=== PATIENT | female | born 2000 | race Caucasian/White ===

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

== ENCOUNTER 2021-01-17 22:25 | Emergency (ER) | payer OTHER ==
[~2021-01-17] VITALS: Ht 167.6 cm; Wt 68.0 kg
[2021-01-17] MEDS ORDERED: LOESTRIN FE 1-1 EACH PO (22:37)
[2021-01-17 22:39] LABS: URINE BILIRUBIN NEGATIVE (Negative); URINE BLOOD NEGATIVE (Negative); URINE CLARITY CLEAR; URINE COLOR YELLOW; URINE GLUCOSE-RANDOM* NEGATIVE (Negative); URINE KETONES NEGATIVE (Negative); URINE NITRITE-REFLEX NEGATIVE (Negative); URINE PROTEIN (DIPSTICK) NEGATIVE (Negative); URINE SPECIFIC GRAVITY 1.015 (1.005-1.035)
[2021-01-17 22:40] LABS: URINE LEUKOCYTES-REFLEX 3+ (Negative)
[2021-01-17 22:51] LABS: CASTS None Seen /LPF (None Seen); MUCUS 0-3 Light strn/LPF (None Seen); SQUAMOUS 4-10 Moderate /LPF (0-3); URINE WBC-REFLEX 0-5 Rare /HPF (0-5)
[2021-01-17 22:52] LABS: BACTERIA-REFLEX 1-9 Few /HPF (None Seen); CRYSTALS None Seen /LPF (None Seen); URINE RBC 1-2 Rare /HPF (NONE SEEN)
[2021-01-17] MEDS ORDERED: FLAGYL500 M1 PO (23:54)
[2021-01-17] MEDS ORDERED: DIFLUCAN150 MG PO (23:54)
[2021-01-18 00:13] VITALS: BP 113/71
== END 2021-01-18 00:19 | disposition home or self-care (01) ==
LOC: ER 22:25
PROVIDERS: Emergency Medicine
DX: N76.0 Acute vaginitis (principal); B96.89 Other specified bacterial agents as the cause of diseases classified elsewhere; B37.3 Candidiasis of vulva and vagina; Z88.1 Allergy status to other antibiotic agents

== ENCOUNTER 2021-02-14 14:31 | Emergency (ER) | payer OTHER ==
[~2021-02-14] VITALS: Ht 167.6 cm; Wt 68.0 kg
[~2021-02-14 14:31] MED LIST changes: +DIFLUCAN150 MG PO; +FLAGYL500 M1 PO; +LOESTRIN FE 1-1 EACH PO
[2021-02-14 14:54] LABS: URINE BILIRUBIN NEGATIVE (Negative); URINE BLOOD 3+ (Negative); URINE COLOR YELLOW; URINE GLUCOSE-RANDOM* NEGATIVE (Negative); URINE KETONES NEGATIVE (Negative); URINE NITRITE-REFLEX NEGATIVE (Negative); URINE PROTEIN (DIPSTICK) TRACE (Negative); URINE UROBILINOGEN 0.2 E.U./dl (0.2-1.0)
[2021-02-14 14:55] LABS: URINE CLARITY HAZY; URINE LEUKOCYTES-REFLEX 1+ (Negative)
[2021-02-14 15:14] LABS: CASTS None Seen /LPF (None Seen); MUCUS >6 Heavy strn/LPF (None Seen); SQUAMOUS 4-10 Moderate /LPF (0-3)
[2021-02-14 15:15] LABS: URINE RBC 3-10 Few /HPF (NONE SEEN); URINE WBC-REFLEX >25 Many /HPF (0-5)
[2021-02-14 15:16] LABS: CRYSTALS None Seen /LPF (None Seen)
[2021-02-14 16:56] VITALS: BP 126/67
[2021-02-15] MEDS ORDERED: MACROBID 100 M100 M1 PO (14:30)
[2021-02-15] MEDS ORDERED: PHENAZOPYRIDIN100 M1 PO (14:30)
[2021-02-15] MEDS ORDERED: DIFLUCAN150 MG PO (14:30)
== END 2021-02-14 16:56 | disposition home or self-care (01) ==
LOC: ER 14:31
PROVIDERS: Emergency Medicine
DX: R30.0 Dysuria (principal); R11.0 Nausea; M54.5 Low back pain; Z88.1 Allergy status to other antibiotic agents

== ENCOUNTER 2021-02-15 13:11 | Emergency (ER) | payer OTHER ==
[~2021-02-15] VITALS: Ht 167.6 cm; Wt 68.0 kg
[2021-02-15 13:54] LABS: URINE BILIRUBIN NEGATIVE (Negative); URINE BLOOD 1+ (Negative); URINE CLARITY CLEAR; URINE COLOR YELLOW; URINE GLUCOSE-RANDOM* NEGATIVE (Negative); URINE KETONES NEGATIVE (Negative); URINE LEUKOCYTES-REFLEX NEGATIVE (Negative); URINE NITRITE-REFLEX NEGATIVE (Negative); URINE PROTEIN (DIPSTICK) NEGATIVE (Negative); URINE UROBILINOGEN 0.2 E.U./dl (0.2-1.0)
[2021-02-15] MEDS ORDERED: DIFLUCAN150 MG PO (14:30)
[2021-02-15] MEDS ORDERED: PHENAZOPYRIDIN100 M1 PO (14:30)
[2021-02-15] MEDS ORDERED: MACROBID 100 M100 M1 PO (14:30)
[2021-02-15 14:31] LABS: MUCUS 4-6 Moderate strn/LPF (None Seen); SQUAMOUS 4-10 Moderate /LPF (0-3)
[2021-02-15 14:32] LABS: URINE WBC-REFLEX >25 Many /HPF (0-5)
[2021-02-15 14:33] LABS: BACTERIA-REFLEX >30 Many /HPF (None Seen)
[2021-02-15 15:08] VITALS: BP 103/56
== END 2021-02-15 15:09 | disposition home or self-care (01) ==
LOC: ER 13:11
PROVIDERS: Nurse Practitioner
DX: N39.0 Urinary tract infection, site not specified (principal); Z98.890 Other specified postprocedural states; Z88.1 Allergy status to other antibiotic agents; Z91.048 Other nonmedicinal substance allergy status; Z79.899 Other long term (current) drug therapy

== ENCOUNTER 2021-03-08 20:33 | Emergency (ER) | payer OTHER ==
[~2021-03-08] VITALS: Ht 167.6 cm; Wt 65.8 kg
[~2021-03-08 20:33] MED LIST changes: +MACROBID 100 M100 M1 PO; +PHENAZOPYRIDIN100 M1 PO
[2021-03-08] MEDS ORDERED: ISIBLOOM 28 DA1 EACH PO (20:55)
[2021-03-08] MEDS ORDERED: PREDNISONE 20 M20 MG PO (21:53)
[2021-03-08] MEDS ORDERED: TESSALON PERLE100 MG PO (21:53)
[2021-03-08] MEDS ORDERED: PROAIR HFA8.5 GM INH (21:53)
[2021-03-08 22:58] VITALS: BP 110/70
== END 2021-03-08 22:59 | disposition home or self-care (01) ==
LOC: ER 20:33
DX: J06.9 Acute upper respiratory infection, unspecified (principal); R05 Cough; R09.81 Nasal congestion; Z88.1 Allergy status to other antibiotic agents; Z88.0 Allergy status to penicillin; Z20.822 Contact with and (suspected) exposure to COVID-19

== ENCOUNTER 2021-03-15 19:46 | Emergency (ER) | payer OTHER ==
[~2021-03-15] VITALS: Ht 167.6 cm; Wt 65.8 kg
[~2021-03-15 19:46] MED LIST changes: +ISIBLOOM 28 DA1 EACH PO; +PREDNISONE 20 M20 MG PO; +TESSALON PERLE100 MG PO
[2021-03-15 21:09] LABS: ABSOLUTE NEUTROPHILS 7.2 thou/uL (1.4-8.2); BASOPHILS 0.3 % (0.0-2.0); EOSINOPHILS 4.7 % (0.0-3.0); HEMATOCRIT 39.4 % (37.0-47.0); HEMOGLOBIN 13.9 gm/dL (12.0-15.0); LYMPHOCYTES 7.3 % (24.0-44.0); MCH 32.5 pg (26.0-34.0); MCHC 35.2 g/dL (28.0-37.0); MCV 92.1 fL (80.0-100.0); MONOCYTES 6.7 % (1.0-8.0); PLATELET COUNT 196 thou/uL (150-400); RBC 4.28 mil/uL (4.20-5.00); RDW 12.2 % (10.5-14.5); WBC 8.9 thou/uL (4.0-11.0)
[2021-03-15 21:13] LABS: URINE BILIRUBIN NEGATIVE (Negative); URINE BLOOD NEGATIVE (Negative); URINE CLARITY CLEAR; URINE COLOR YELLOW; URINE GLUCOSE-RANDOM* NEGATIVE (Negative); URINE KETONES NEGATIVE (Negative); URINE LEUKOCYTES-REFLEX NEGATIVE (Negative); URINE PROTEIN (DIPSTICK) NEGATIVE (Negative); URINE SPECIFIC GRAVITY 1.025 (1.005-1.035); URINE UROBILINOGEN 0.2 E.U./dl (0.2-1.0)
[2021-03-15 21:15] LABS: URINE NITRITE-REFLEX POSITIVE (Negative)
[2021-03-15 21:17] LABS: CALCIUM 8.2 mg/dL (8.5-10.1); CREATININE 0.9 mg/dL (0.6-1.0); POTASSIUM 3.5 mmol/L (3.5-5.1)
[2021-03-15 21:23] LABS: ALBUMIN 3.2 g/dL (3.4-5.0); TOTAL BILIRUBIN 0.2 mg/dL (0.2-1.0); TOTAL PROTEIN 6.5 g/dL (6.4-8.2)
[2021-03-15 21:34] LABS: BACTERIA-REFLEX 1-9 Few /HPF (None Seen); CASTS None Seen /LPF (None Seen); CRYSTALS None Seen /LPF (None Seen); MUCUS 0-3 Light strn/LPF (None Seen); SQUAMOUS 0-3 Few /LPF (0-3); URINE RBC None Seen /HPF (NONE SEEN); URINE WBC-REFLEX None Seen /HPF (0-5)
[2021-03-15] MEDS ORDERED: MACROBID 100 M100 M1 PO (22:04)
[2021-03-15] MEDS ORDERED: ONDANSETRON HCL4 M2 PO (22:05)
[2021-03-15 22:13] VITALS: BP 109/68
== END 2021-03-15 22:16 | disposition home or self-care (01) ==
LOC: ER 19:46
PROVIDERS: Nurse Practitioner
DX: R30.0 Dysuria (principal); M54.5 Low back pain; Z20.822 Contact with and (suspected) exposure to COVID-19; Z98.890 Other specified postprocedural states; Z91.09 Other allergy status, other than to drugs and biological substances; Z79.51 Long term (current) use of inhaled steroids; Z79.899 Other long term (current) drug therapy; Z88.0 Allergy status to penicillin; Z88.8 Allergy status to other drugs, medicaments and biological substances

== ENCOUNTER 2021-03-17 12:01 | Emergency (ER) | payer OTHER ==
[~2021-03-17] VITALS: Ht 167.6 cm; Wt 65.8 kg
[~2021-03-17 12:01] MED LIST changes: +ONDANSETRON HCL4 M2 PO
[2021-03-17 13:40] LABS: HEMATOCRIT 41.6 % (37.0-47.0); HEMOGLOBIN 14.5 gm/dL (12.0-15.0); MCH 32.1 pg (26.0-34.0); MCV 91.6 fL (80.0-100.0); PLATELET COUNT 164 thou/uL (150-400); RBC 4.54 mil/uL (4.20-5.00); RDW 12.4 % (10.5-14.5); WBC 15.9 thou/uL (4.0-11.0)
[2021-03-17 13:41] LABS: CALCIUM 8.4 mg/dL (8.5-10.1); CREATININE 1.2 mg/dL (0.6-1.0); POTASSIUM 3.7 mmol/L (3.5-5.1)
[2021-03-17 14:02] LABS: ABSOLUTE NEUTROPHILS 14.8 thou/uL (1.4-8.2)
[2021-03-17] MEDS ORDERED: PHENAZOPYRIDIN200 M2 PO (14:27)
[2021-03-17] MEDS ORDERED: CIPROFLOXACIN500 M1 PO (14:27)
--- NOTE | 2021-03-17 14:56 | EKG ---
[place] [address] [facility] [place] [address] ELECTROCARDIOGRAM REPORT Name: DEIRDRE ROACH LV Room #: [facility] [id number] Admission: 03/17/21 Attend Phys: Discharge: Date of : 01 Report #: [id number] [facility] ED Test Date: 2021-03-17 Test Time: 12:31:40 Pat Name: DEIRDRE ROACH Department: Room: Gender: F [place] Program Director: JEAN-PAUL : 2000 Requested By: Long Morse Order Number: [id number] MD: Sean Ingram Measurements Intervals [place] Rate: 99 P: 64 MA: 130 QRS: 57 QRSD: 82 T: -30 QT: 282 QTc: 362 Interpretive Statements Sinus rhythm Multiple ventricular premature complexes Borderline T abnormalities, diffuse leads No previous ECG available for comparison Electronically Signed On 03-17-2021 14:56:38 CDT by Sean Ingram [email or web address] <ELECTRONICALLY SIGNED> By: Sean Ingram MD, [facility] 03/17/21 1456 1231 1231 Sean Ingram MD, FACC /EPI
[2021-03-17 15:44] VITALS: BP 103/55
== END 2021-03-17 15:46 | disposition home or self-care (01) ==
LOC: ER 12:01
PROVIDERS: Nurse Practitioner
DX: N39.0 Urinary tract infection, site not specified (principal); Z20.822 Contact with and (suspected) exposure to COVID-19; Z79.899 Other long term (current) drug therapy; Z88.1 Allergy status to other antibiotic agents; Z88.0 Allergy status to penicillin

== ENCOUNTER 2021-03-28 23:39 | Emergency (ER) | payer OTHER ==
[~2021-03-28] VITALS: Ht 167.6 cm; Wt 65.8 kg
[~2021-03-28 23:39] MED LIST changes: +CIPROFLOXACIN500 M1 PO; +PHENAZOPYRIDIN200 M2 PO
[2021-03-28 23:49] VITALS: BP 114/75
[2021-03-29] MEDS ORDERED: DIFLUCAN150 MG PO (00:09)
== END 2021-03-29 00:21 | disposition home or self-care (01) ==
LOC: ER 23:39
DX: B37.3 Candidiasis of vulva and vagina (principal); Z98.890 Other specified postprocedural states; Z79.51 Long term (current) use of inhaled steroids; Z79.899 Other long term (current) drug therapy; Z88.1 Allergy status to other antibiotic agents; Z88.8 Allergy status to other drugs, medicaments and biological substances; Z91.09 Other allergy status, other than to drugs and biological substances

== ENCOUNTER 2021-04-23 07:57 | Emergency (ER) | payer OTHER ==
[~2021-04-23] VITALS: Ht 167.6 cm; Wt 72.6 kg
[2021-04-23 08:51] LABS: ABSOLUTE NEUTROPHILS 9.8 thou/uL (1.4-8.2); BASOPHILS 0.1 % (0.0-2.0); EOSINOPHILS 2.1 % (0.0-3.0); HEMATOCRIT 40.8 % (37.0-47.0); HEMOGLOBIN 14.1 gm/dL (12.0-15.0); LYMPHOCYTES 2.5 % (24.0-44.0); MCH 31.6 pg (26.0-34.0); MCHC 34.5 g/dL (28.0-37.0); MCV 91.6 fL (80.0-100.0); MONOCYTES 4.5 % (1.0-8.0); PLATELET COUNT 167 thou/uL (150-400); POLYS 90.8 % (36.0-66.0); RBC 4.46 mil/uL (4.20-5.00); RDW 12.4 % (10.5-14.5); WBC 10.8 thou/uL (4.0-11.0)
[2021-04-23 08:55] LABS: ANION GAP 10 mmol/L (7-16); BUN 12 mg/dL (7-18); CALCIUM 8.8 mg/dL (8.5-10.1); CHLORIDE 110 mmol/L (98-107); CO2 24 mmol/L (21-32); CREATININE 0.9 mg/dL (0.6-1.0); GLUCOSE 100 mg/dL (74-106); POTASSIUM 4.3 mmol/L (3.5-5.1); SODIUM 144 mmol/L (136-145)
[2021-04-23 09:01] LABS: ALBUMIN 3.5 g/dL (3.4-5.0); DIRECT BILIRUBIN < 0.1 mg/dL (<0.1-0.2); LIPASE 75 U/L (73-393); SGOT 15 U/L (15-37); SGPT 18 U/L (14-59); TOTAL BILIRUBIN 0.5 mg/dL (0.2-1.0)
[2021-04-23 10:40] LABS: URINE BILIRUBIN NEGATIVE (Negative); URINE BLOOD NEGATIVE (Negative); URINE CLARITY CLOUDY; URINE COLOR YELLOW; URINE GLUCOSE-RANDOM* NEGATIVE (Negative); URINE KETONES NEGATIVE (Negative); URINE LEUKOCYTES-REFLEX NEGATIVE (Negative); URINE NITRITE-REFLEX NEGATIVE (Negative); URINE PROTEIN (DIPSTICK) NEGATIVE (Negative); URINE SPECIFIC GRAVITY >= 1.030 (1.005-1.035); URINE UROBILINOGEN 0.2 E.U./dl (0.2-1.0)
[2021-04-23] MEDS ORDERED: ZOFRAN ODT4 MG PO (10:52)
[2021-04-23 11:16] VITALS: BP 114/70
== END 2021-04-23 11:17 | disposition home or self-care (01) ==
LOC: ER 07:57
PROVIDERS: Student in an Organized Health Care Education/Training Program
DX: K52.9 Noninfective gastroenteritis and colitis, unspecified (principal); Z88.1 Allergy status to other antibiotic agents

== ENCOUNTER 2021-06-01 00:01 | Emergency (ER) | payer OTHER ==
[~2021-06-01] VITALS: Ht 167.6 cm; Wt 68.0 kg
[~2021-06-01 00:01] MED LIST changes: +ZOFRAN ODT4 MG PO
[2021-06-01 01:03] LABS: URINE BILIRUBIN NEGATIVE (Negative); URINE BLOOD NEGATIVE (Negative); URINE CLARITY CLEAR; URINE COLOR YELLOW; URINE GLUCOSE-RANDOM* NEGATIVE (Negative); URINE KETONES NEGATIVE (Negative); URINE NITRITE-REFLEX NEGATIVE (Negative); URINE PROTEIN (DIPSTICK) NEGATIVE (Negative)
[2021-06-01 01:07] LABS: URINE LEUKOCYTES-REFLEX 1+ (Negative)
[2021-06-01 01:12] LABS: BACTERIA-REFLEX 1-9 Few /HPF (None Seen); CASTS None Seen /LPF (None Seen); CRYSTALS None Seen /LPF (None Seen); MUCUS 0-3 Light strn/LPF (None Seen); SQUAMOUS 4-10 Moderate /LPF (0-3); URINE RBC 3-10 Few /HPF (NONE SEEN); URINE WBC-REFLEX 6-15 Few /HPF (0-5)
[2021-06-01 01:28] VITALS: BP 128/75
== END 2021-06-01 01:29 | disposition home or self-care (01) ==
LOC: ER 00:01
PROVIDERS: Emergency Medicine
DX: B37.3 Candidiasis of vulva and vagina (principal); Z98.890 Other specified postprocedural states; Z79.51 Long term (current) use of inhaled steroids; Z79.899 Other long term (current) drug therapy; Z88.1 Allergy status to other antibiotic agents; Z91.09 Other allergy status, other than to drugs and biological substances; Z88.8 Allergy status to other drugs, medicaments and biological substances

== ENCOUNTER → 2021-06-24 | Outpatient (CLI) | payer OTHER ==
[2021-06-24 10:55] LABS: BASOPHILS 1.4 % (0.0-2.0); EOSINOPHILS 3.1 % (0.0-3.0); HEMATOCRIT 40.5 % (37.0-47.0); HEMOGLOBIN 14.1 gm/dL (12.0-15.0); LYMPHOCYTES 23.8 % (24.0-44.0); MCH 31.7 pg (26.0-34.0); MCHC 34.7 g/dL (28.0-37.0); MCV 91.3 fL (80.0-100.0); MONOCYTES 6.1 % (1.0-8.0); PLATELET COUNT 185 thou/uL (150-400); POLYS 65.6 % (36.0-66.0); RBC 4.43 mil/uL (4.20-5.00); RDW 12.3 % (10.5-14.5); WBC 4.5 thou/uL (4.0-11.0)
[2021-06-24 11:09] LABS: CREATININE 0.8 mg/dL (0.6-1.0); POTASSIUM 4.5 mmol/L (3.5-5.1); TOTAL BILIRUBIN 0.3 mg/dL (0.2-1.0); TOTAL PROTEIN 7.5 g/dL (6.4-8.2)
[2021-06-25 00:06] LABS: GLYCOHEMOGLOBIN (HGB A1C) 4.8 % (4.8-5.6)
== END ==
LOC: LAB 10:11
PROVIDERS: ATTEND Family Medicine
DX: R53.83 Other fatigue (principal); E55.9 Vitamin D deficiency, unspecified; L65.9 Nonscarring hair loss, unspecified; R73.9 Hyperglycemia, unspecified

== ENCOUNTER 2021-07-04 22:15 | Emergency (ER) | payer OTHER ==
[~2021-07-04] VITALS: Ht 167.6 cm; Wt 68.0 kg
[2021-07-04 23:15] LABS: URINE BILIRUBIN NEGATIVE (Negative); URINE BLOOD NEGATIVE (Negative); URINE CLARITY CLEAR; URINE COLOR YELLOW; URINE GLUCOSE-RANDOM* NEGATIVE (Negative); URINE KETONES NEGATIVE (Negative); URINE NITRITE-REFLEX NEGATIVE (Negative); URINE PROTEIN (DIPSTICK) NEGATIVE (Negative); URINE UROBILINOGEN 0.2 E.U./dl (0.2-1.0)
[2021-07-04 23:19] LABS: URINE LEUKOCYTES-REFLEX 2+ (Negative)
[2021-07-04 23:27] LABS: BACTERIA-REFLEX 1-9 Few /HPF (None Seen); CASTS None Seen /LPF (None Seen); CRYSTALS None Seen /LPF (None Seen); MUCUS 4-6 Moderate strn/LPF (None Seen); SQUAMOUS 4-10 Moderate /LPF (0-3); URINE RBC 1-2 Rare /HPF (NONE SEEN); URINE WBC-REFLEX 6-15 Few /HPF (0-5); YEAST-REFLEX Present (None Seen)
[2021-07-04] MEDS ORDERED: DIFLUCAN150 M1 PO (23:55)
[2021-07-05 00:17] VITALS: BP 111/63
[2021-07-05] MEDS ORDERED: DIFLUCAN150 MG PO (01:11)
== END 2021-07-05 00:15 | disposition home or self-care (01) ==
LOC: ER 22:15
PROVIDERS: Student in an Organized Health Care Education/Training Program
DX: B37.3 Candidiasis of vulva and vagina (principal); Z98.890 Other specified postprocedural states; Z79.51 Long term (current) use of inhaled steroids; Z79.899 Other long term (current) drug therapy; Z88.1 Allergy status to other antibiotic agents; Z88.8 Allergy status to other drugs, medicaments and biological substances; Z91.09 Other allergy status, other than to drugs and biological substances

== ENCOUNTER 2021-07-25 12:14 | Emergency (ER) | payer OTHER ==
[~2021-07-25] VITALS: Ht 167.6 cm; Wt 68.0 kg
[2021-07-25 12:18] VITALS: BP 103/64
[2021-07-25 12:29] LABS: URINE BILIRUBIN NEGATIVE (Negative); URINE BLOOD NEGATIVE (Negative); URINE CLARITY CLEAR; URINE COLOR YELLOW; URINE GLUCOSE-RANDOM* NEGATIVE (Negative); URINE KETONES NEGATIVE (Negative); URINE LEUKOCYTES-REFLEX NEGATIVE (Negative); URINE NITRITE-REFLEX NEGATIVE (Negative); URINE PROTEIN (DIPSTICK) NEGATIVE (Negative); URINE SPECIFIC GRAVITY 1.015 (1.005-1.035); URINE UROBILINOGEN 0.2 E.U./dl (0.2-1.0)
[2021-07-25 13:08] LABS: ABSOLUTE NEUTROPHILS 3.8 thou/uL (1.4-8.2); BASOPHILS 1.2 % (0.0-2.0); EOSINOPHILS 2.1 % (0.0-3.0); HEMOGLOBIN 12.8 gm/dL (12.0-15.0); LYMPHOCYTES 21.2 % (24.0-44.0); MCH 32.4 pg (26.0-34.0); MCHC 35.6 g/dL (28.0-37.0); MONOCYTES 7.7 % (1.0-8.0); PLATELET COUNT 205 thou/uL (150-400); POLYS 67.8 % (36.0-66.0); RBC 3.96 mil/uL (4.20-5.00); RDW 11.8 % (10.5-14.5); WBC 5.6 thou/uL (4.0-11.0)
[2021-07-25 13:29] LABS: CALCIUM 8.7 mg/dL (8.5-10.1); CREATININE 0.8 mg/dL (0.6-1.0); POTASSIUM 4.2 mmol/L (3.5-5.1)
[2021-07-25 13:33] LABS: ALBUMIN 3.7 g/dL (3.4-5.0); TOTAL BILIRUBIN 0.5 mg/dL (0.2-1.0); TOTAL PROTEIN 6.8 g/dL (6.4-8.2)
[2021-07-25] MEDS ORDERED: COLACE100 MG PO (13:38)
[2021-07-25] MEDS ORDERED: ONDANSETRON HCL4 M2 PO (13:42)
== END 2021-07-25 14:07 | disposition home or self-care (01) ==
LOC: ER 12:14
PROVIDERS: Emergency Medicine; Nurse Practitioner
DX: K59.00 Constipation, unspecified (principal); R11.2 Nausea with vomiting, unspecified; Z91.09 Other allergy status, other than to drugs and biological substances; Z98.890 Other specified postprocedural states; Z79.51 Long term (current) use of inhaled steroids; Z79.899 Other long term (current) drug therapy; Z79.891 Long term (current) use of opiate analgesic; Z88.1 Allergy status to other antibiotic agents; Z88.8 Allergy status to other drugs, medicaments and biological substances

== ENCOUNTER → 2021-08-02 | Outpatient (CLI) | payer OTHER ==
[~2021-08-02] MED LIST changes: +COLACE100 MG PO
[2021-08-03 11:07] LABS: THYROGLOBULIN 5.3 ng/mL (1.5-38.5); THYROGLOBULIN AB SCREEN <1.0 IU/mL (0.0-0.9)
== END ==
LOC: LAB 10:51
PROVIDERS: ATTEND Family Medicine
DX: E03.9 Hypothyroidism, unspecified (principal)

== ENCOUNTER → 2021-08-05 | Outpatient (CLI) | payer OTHER | LOC: LAB 09:28 | PROVIDERS: ATTEND Family Medicine | DX: R53.83 Other fatigue (principal) ==

== ENCOUNTER → 2021-08-16 | Outpatient (CLI) | payer OTHER | LOC: MRI 08:24 | PROVIDERS: ATTEND Family Medicine | DX: Q07.01 Arnold-Chiari syndrome with spina bifida (principal); R51.9 Headache, unspecified ==